=== PATIENT | female | born 1990 ===

== ENCOUNTER 2022-08-22 12:18 | Inpatient (IN) | payer OTHER ==
[~2022-08-22] VITALS: Ht 157.5 cm; Wt 86.2 kg
[2022-08-29] MEDS ORDERED: ZYRTEC10 MG PO (05:48)
[2022-08-29] MEDS ORDERED: PRENATAL TABLE1 EAC4 PO (05:48)
== END 2022-08-31 11:59 | disposition home or self-care (01) | DRG 768 ==
LOC: LDR 08-29 05:34 → OB/GYN 08-29 05:34
PROVIDERS: ADMIT Obstetrics & Gynecology Gynecology; ATTEND Obstetrics & Gynecology Gynecology
PROC: 10E0XZZ Delivery of Products of Conception, External Approach (ICD-10-PCS; principal; 2022-08-29)
PROC: 0DQP0ZZ Repair Rectum, Open Approach (ICD-10-PCS; 2022-08-29)
PROC: 0W8NXZZ Division of Female Perineum, External Approach (ICD-10-PCS; 2022-08-29)
PROC: 4A1HXCZ Monitoring of Products of Conception, Cardiac Rate, External Approach (ICD-10-PCS; 2022-08-29)
DX: O70.3 Fourth degree perineal laceration during delivery (principal); Z37.0 Single live birth; Z3A.39 39 weeks gestation of pregnancy; Z20.822 Contact with and (suspected) exposure to COVID-19